=== PATIENT | male | born 1975 | race Hispanic/Latino ===

== ENCOUNTER 2019-06-17 23:26 | Emergency (ER) | payer SELFPAY ==
[2019-06-18] MEDS ORDERED: Adacel (T-DAP) 0.5 ML SYRINGE ONE (00:15)
[2019-06-18] MEDS ORDERED: Lidocaine 1% w/Epinephrine 1:100K 20 ML VIAL ONE (00:15)
== END 2019-06-18 01:31 | disposition home or self-care (01) ==
LOC: ERS 23:26
DX: S31.821A Laceration without foreign body of left buttock, initial encounter (principal); I10 Essential (primary) hypertension; Z23 Encounter for immunization; W18.2XXA Fall in (into) shower or empty bathtub, initial encounter
CPT/HCPCS: 12001; 90471; 90715

== ENCOUNTER 2023-08-31 14:56 | Emergency (ER) | payer SELFPAY ==
[2023-08-31] MEDS ORDERED: Ibuprofen 800 MG TAB ONE (16:11)
[2023-08-31] MEDS ORDERED: Lidocaine/Transparent Dressing 1 EACH KIT ONE (16:13)
== END 2023-08-31 16:33 | disposition home or self-care (01) ==
LOC: ERS 14:56
DX: K64.9 Unspecified hemorrhoids (principal); I10 Essential (primary) hypertension
CPT/HCPCS: 99283